=== PATIENT | female | born 2005 | race Asian ===

== ENCOUNTER 2025-01-03 13:49 | Emergency (ER) | payer BC, SELFPAY ==
[2025-01-03 13:57] VITALS: BP 139/85; BP 140/80; PULSE 70; RESP 16; TEMP 36.3; O2SAT 98; BMI 33.2
[2025-01-03] MEDS: Oxymetazoline HCl 0.05 % Nasal 15 ML SPRAY 2 SPRAY NOSTRIL-B (13:59)
--- NOTE | 2025-01-03 13:59 | ED.GENADULT ---
HPI - General Adult General Chief complaint: General Medical Stated complaint: nose bleed x45 mins Time Seen by Provider: 01/03/25 13:55 Source: patient Mode of arrival: ambulatory Limitations: no limitations History of Present Illness ED Provider: TONA Lopes HPI narrative: 16-year-old female history of obesity presents with bleeding to bilateral nares ongoing for the past 45 minutes. Denies mechanical trauma. Denies a/c pain. Patient is not on any anticoagulants. No history of bleeding disorders. Related Data Allergies Allergy/AdvReac Type Severity Reaction Status Date / Time No Known Allergies Allergy Verified 01/03/25 14:02 Review of Systems Review of Systems: Yes all other systems are reviewed and are negative [facility] Past Medical History Attestation statement: The following information was validated with the patient. Source: old records reviewed and nursing notes reviewed Social History Social History Advance Directives: No Advance Directives Information Provided: No Do you have a plan to hurt others: No Plan Physical Exam ED Exam Exam: Appearance: Alert.? Oriented X3.? No acute distress.? Head: Normocephalic, atraumatic, no step-offs or deformities Eyes: Pupils equal, round and reactive to light.? Nose: + dry blood noted in the left nares. No blood noted in the right nares. No active bleeding at this time. Neck: Normal inspection.? Neck supple.? CVS:? Pulses normal.? Respiratory: No respiratory distress.? Abdomen: Soft and nontender.? Skin: Skin warm and dry.? Normal skin color.? Normal skin turgor.? Extremities: No lower extremity edema.? No calf ttp. 5/5 strength to bilateral upper and lower extremities Neuro: Oriented X 3.? No motor deficit.? No sensory deficit. CN 2-12 intact Vital Signs: Vital Signs - 24 hr 01/03/25 13:57 Temperature 97.3 F Pulse Rate 70 Respiratory Rate 16 Blood Pressure 139/85 H Pulse Oximetry 98 Oxygen Delivery Method Room Air BMI result Body Mass Index 33.2 vss Course Reevaluation(s) Reevaluation #1: Patient has not had any further bleeding after Afrin. She feels well. Labs are pending. As long as these are normal she can be discharged home Time: 15:04 Reevaluation #2: CBC unremarkable. Chemistry with transaminitis, no abdominal tenderness. Will have her follow up with PCP. Educated her on this. Time: 16:06 Medications Administered Discontinued Medications Generic Name Dose Route Start Last Admin Trade Name Richard PRN Reason Stop Dose Admin Oxymetazoline HCl 2 spray 01/03/25 13:56 01/03/25 13:59 Oxymetazoline Hcl 0.05 % Nasal 15 Ml [place] NOSTRIL-B 01/03/25 13:57 2 spray ONCE ONE Administration Medical Decision Making Medical Decision Making [facility] Narrative: 16-year-old female presents with epistaxis times 45 minutes. Denies trauma. Denies bleeding disorder. Not on blood thinners Physical exam dry blood noted in the left nares. No blood in the right nares. No active bleeding History and physical exam consistent with epistaxis that has resolved. Patient reports she feels lightheaded will rule out electrolyte abnormalities and anemia. Plan labs. Will give her Afrin and a nasal clamp. Lab Data 01/03/25 14:59 01/03/25 14:59 Labs: Lab Results 01/03/25 Range/Units 14:59 WBC 7.4 (4.8-10.8) X10*3/uL RBC 5.05 (4.20-5.50) X10*6/uL Hgb 15.0 (12.0-16.0) g/dl Hct 42.7 (37.0-47.0) % MCV 84.6 (80.0-98.0) fL MCH 29.7 (27.0-33.0) pg MCHC 35.1 H (31.0-35.0) g/dl RDW 12.2 (11.0-16.0) % Plt Count 276 (160-400) X10*3/uL MPV 10.0 (9.4-12.3) fL Immature Gran % (Auto) 0.3 (0.0-0.4) % Neut % (Auto) 64.4 (45-73) % Lymph % (Auto) 23.6 (20-40) % [place] % (Auto) 7.0 (2-11) % Eos % (Auto) 3.9 (0-4) % Baso % (Auto) 0.8 (0-2) % Lymph # (Auto) 1.8 (1.2-4.9) X10*3/uL [place] # (Auto) 0.5 (0.1-1.2) X10*3/uL Eos # (Auto) 0.3 (0.0-0.4) X10*3/uL Baso # (Auto) 0.1 (0.0-0.2) X10*3/uL Abs Immat Gran (auto) 0.02 (0.00-0.03) X10*3/uL Absolute Neuts (auto) 4.8 (2.0-8.3) x10*3/uL Absolute Nucleated RBC 0.000 (0.0-0.012) X10*3/uL Nucleated RBC % (auto) 0.0 (0.0-0.2) /100WBC Sodium 140 (135-145) mmol/L Potassium 3.9 (3.3-5.1) mmol/L Chloride 108 (96-108) mmol/L Carbon Dioxide 24 (22-29) mmol/L Anion Gap 12 (12-20) BUN 12 (9-16) mg/dL Creatinine 0.68 (0.5-1.4) mg/dL Estim Creat Clear Calc 180.1 Estimated GFR > 60 Random Glucose 152 H (60-115) mg/dL Calcium 9.5 (8.4-10.2) mg/dL Total Bilirubin 1.0 (0.0-1.0) mg/dL AST 73 H (5-31) U/L ALT 172 H (0-31) U/L Alkaline Phosphatase 75 (39-117) U/L Total Protein 7.5 (6.5-8.0) g/dL Albumin 4.7 (3.5-5.0) g/dL Discharge Plan Discharge Clinical Impression: Epistaxis, Transaminitis Patient Disposition: Home, Self-Care Instructions: Nosebleed in Children (ED) Additional Instructions: Take your medications as prescribed. If you were prescribed antibiotics today, it is important that you take your medication to their entirety, do not skip any doses, do not finish them early. Follow-up with your primary care provider this week. Return to the emergency department with new or worsening symptoms. Such as fevers, chills, chest pain, shortness of breath, nausea, vomiting, dizziness, headache, vision changes, lethargy In case of emergency call 911 Your liver enzymes were noted to be elevated please follow-up with your PCP for further evaluation of this. Referrals: Physician,None [Primary Care Provider, Medical] Stand Alone Forms: Work/School Release Print Language: [place]
[2025-01-03 15:03] LABS: MANUAL DIFF FLAG NO
[2025-01-03 15:50] LABS: Hematocrit 42.7 % (37.0-47.0); Hemoglobin 15.0 g/dl (12.0-16.0); Imm Gran Abs Auto 0.02 X10*3/uL (0.00-0.03); Imm Gran Pct Auto 0.3 % (0.0-0.4); Lymphocytes Absolute Auto 1.8 X10*3/uL (1.2-4.9); Mean Corpuscular HGB Conc 35.1 g/dl (31.0-35.0); Mean Corpuscular Hemoglobin 29.7 pg (27.0-33.0); Mean Corpuscular Volume 84.6 fL (80.0-98.0); NRBC Abs Auto 0.000 X10*3/uL (0.0-0.012); NRBC Pct Auto 0.0 /100WBC (0.0-0.2); Platelet Count 276 X10*3/uL (160-400); Red Blood Count 5.05 X10*6/uL (4.20-5.50); White Blood Count 7.4 X10*3/uL (4.8-10.8)
[2025-01-03 15:54] LABS: Alanine Aminotransferase 172 U/L (0-31); Albumin Level 4.7 g/dL (3.5-5.0); Alkaline Phosphatase 75 U/L (39-117); Anion Gap 12 (12-20); Aspartate Amino Transferase 73 U/L (5-31); Blood Urea Nitrogen 12 mg/dL (9-16); Calcium 9.5 mg/dL (8.4-10.2); Carbon Dioxide 24 mmol/L (22-29); Chloride 108 mmol/L (96-108); Creatinine Clr Calc Pharmacy 180.1; Estimated Glomerular Filt Rate > 60; Potassium 3.9 mmol/L (3.3-5.1); Sodium 140 mmol/L (135-145); Total Protein 7.5 g/dL (6.5-8.0)
[2025-01-03 16:13] VITALS: BP 121/75; PULSE 78; RESP 16; TEMP 36.6; O2SAT 100
[2025-01-03 16:29] VITALS: BP 129/85; PULSE 79; RESP 16; TEMP 36.6; O2SAT 99
== END 2025-01-03 16:30 | disposition home or self-care (01) ==
PROVIDERS: Physician Assistant; Emergency Provider Emergency Medicine
DX: R04.0 Epistaxis (principal); R74.01 Elevation of levels of liver transaminase levels
CPT/HCPCS: 36415; 80053; 85025; 99283; 99284